=== PATIENT | male | born 1985 | race Caucasian/White ===

== ENCOUNTER 2021-09-23 19:03 | Emergency (ER) | payer OTHER, SELFPAY ==
--- NOTE | ~2021-09-23 | XR_ITS ---
EXAMINATION: XR ankle LT min 3V DATE: 09/23/2021 19:26 INDICATION: Left ankle pain, initial encounter TECHNIQUE: Anteroposterior, lateral, mortise, and additional oblique view of the ankle were obtained. COMPARISON: None. FINDINGS: There is an oblique fracture of the distal fibula 5 cm above the tibial plafond. There is a transverse avulsion fracture of the medial malleolus. There is a posterior malleolus fracture of the distal tibia as well. There is mild lateral subluxation of the talus with respect to the distal tibi a. Soft tissue swelling surrounds the fractures. No additional acute osseous findings are evident. IMPRESSION: 1. Oblique fracture of the distal fibula. 2. Posterior and medial malleolar fractures of the tibia. 3. Mild lateral subluxation of the talus with respect to the tibia. Reviewed, dictated and finalized at location F.
--- NOTE | ~2021-09-23 | CT_ITS ---
EXAMINATION: CT ankle LT wo con DATE: 09/23/2021 21:04 INDICATION: Left ankle pain TECHNIQUE: Computed tomography (CT) of the left ankle was performed without intravenous contrast. The dose-length product (DLP) was 477.66 mGy-cm. Automated exposure control and iterative reconstruction technique were employed. COMPARISON: Radiographs from earlier today FINDINGS: Again seen is an oblique fracture of the distal fibula ending approximately 5.5 cm above th e tibial plafond. A second fracture plane continues an oblique and anterior fashion resulting in a no ndisplaced fracture fragment situated between the oblique fracture and lateral malleolus. There are c omminuted fractures of the medial and posterior malleoli of the tibia. The talus is laterally subluxe d approximately 9 mm with respect to the distal tibia. No additional fracture is identified. Soft tis yinka swelling surrounds the fractures. IMPRESSION: 1. Fractures of the distal tibia and fibula as described above. Reviewed, dictated and finalized at location F.
[2021-09-23 19:08] VITALS: BP 142/89; PULSE 70; RESP 17; TEMP 36.5; O2SAT 100
[2021-09-23] MEDS: ONDANSETRON INJ 4 MG/2 ML VIAL IV PUSH (20:11)
[2021-09-23] MEDS: MORPHINE SULFATE (*CRX) 4 MG/ML INJ IV PUSH (20:11)
--- NOTE | 2021-09-23 22:00 | ED.LOWEXIN ---
HPI - Extremity Injury (Lower) General Chief Complaint: Extremity Injury, Lower Stated Complaint: possible broken ankle Time Seen by Provider: 09/23/21 19:07 Source: patient Mode of arrival: EMS Limitations: no limitations History of Present Illness HPI Narrative: 35-year-old otherwise healthy here with complaints of left ankle pain. Patient states that he got injured few hours ago. Patient states that his son was throwing a ball and he tried to avoid it and jumped and landed in a wrong way. Since then he has been unable to bear weight on his left leg. He denies headache or neck injury. MD complaint: leg injury and ankle injury Onset (ago): hour(s) (2) Type of Injury: unknown Place: street/outdoors Severity: severe Severity scale (1-10): 10 Relieving factors: immobilization and rest Exacerbating factors: movement Context: fall Associated symptoms: snap/pop sensation and swelling Other symptoms: none Related Data Allergies Allergy/AdvReac Type Severity Reaction Status Date / Time Sulfa (Sulfonamide Allergy Unknown Verified 09/23/21 19:18 Antibiotics) Review of Systems Review of Systems: All systems reviewed & are unremarkable except as noted in HPI and below Constitutional: Constitutional: Reports no additional constitutional complaints Eyes: Eyes: Reports no additional eye complaints ENT: Reports system reviewed and no additional complaints, except as documented Cardiovascular: Cardiovascular: Reports no additional cardiovascular complaints Respiratory: Respiratory: Reports no additional respiratory complaints Gastrointestinal: Gastrointestinal: Reports no additional gastrointestinal complaints Musculoskeletal: Musculoskeletal: Reports as per HPI Integumentary/Breasts: Skin/Breast: Reports system reviewed and no additional complaints, except as docu Neurologic: Reports system reviewed and no additional complaints, except as documented Exam Narrative: GENERAL: Well-appearing, well-nourished, and in no acute distress. HEAD: Normocephalic, atraumatic. EYES: PERRLA and EOMI.. NECK: Supple. CHEST: Clear to auscultation. No respiratory distress. HEART: Regular rate and rhythm. No murmur heard. Normal peripheral pulses. ABDOMEN: Soft, nontender, nondistended, normal active bowel sounds. EXTREMITIES: Normal range of motion. Examination of the left ankle moderate soft tissue swelling, no obvious deformity noted SKIN: Warm, dry, no rash. NEURO: No focal deficits. Alert and oriented x3. PSYCH: Normal mood and affect. Course Course Emergency Course: Inform patient and his about x-ray findings. Discussed with Dr. Gómez recommended a CT of the ankle. He reviewed the CT and ankle x-rays. We will see him in the office tomorrow. Advised patient to use crutches for ambulation no weightbearing. Keep the leg elevated. Take pain medication as needed. Vital Signs Vital signs: Vital Signs Temperature 36.5 C 09/23/21 19:08 Pulse Rate 70 09/23/21 19:08 Respiratory Rate 17 09/23/21 19:08 Blood Pressure 142/89 H 09/23/21 19:08 Pulse Oximetry 100 09/23/21 19:08 Temperature 36.5 C 09/23/21 19:08 Pulse Rate 70 09/23/21 19:08 Respiratory Rate 17 09/23/21 19:08 Blood Pressure 142/89 H 09/23/21 19:08 Pulse Oximetry 100 09/23/21 19:08 MDM - Extremity Injury (Lower) Imaging Data Radiologist's impression: ITS Impressions Ankle X-Ray 09/23/21 19:27 IMPRESSION: 1. Oblique fracture of the distal fibula. 2. Posterior and medial malleolar fractures of the tibia. 3. Mild lateral subluxation of the talus with respect to the tibia. Ankle CT 09/23/21 21:12 IMPRESSION: 1. Fractures of the distal tibia and fibula as described above. Discharge Plan Discharge Clinical Impression: Ankle fracture, left Qualifiers: Encounter type: initial encounter Fracture type: closed Qualified Code(s): S82.892A - Other fracture of left lower leg, initial encounter for closed
[2021-09-23 22:30] VITALS: BP 132/71; PULSE 70; RESP 16; O2SAT 98
== END 2021-09-23 22:30 | disposition home or self-care (01) ==
PROVIDERS: Emergency Provider Family Medicine
DX: S82.832A Other fracture of upper and lower end of left fibula, initial encounter for closed fracture (principal); S82.52XA Displaced fracture of medial malleolus of left tibia, initial encounter for closed fracture
CPT/HCPCS: 29505; 73610; 73700; 96374; 96375; 99284; J2270; J2405

== ENCOUNTER 2021-10-01 01:39 | Day surgery (SDC) | payer OTHER, SELFPAY ==
[2021-09-25 14:47] VITALS: BMI 31.2
--- NOTE | 2021-09-25 14:56 | PC.NURSE ---
Report to the Outpatient Waiting Room, entrance under the green pavilion located off [facility], at time 0600 on date . OR Time: 0730. - You and your visitor will be asked a series of questions to screen for COVID 19 for your protection. - Only one visitor is allowed at this time. - The patient visitor is requested to leave or wait in car when not with patient. - A mask is required within the hospital. Patients may have clear liquids (water, carbonated beverages, clear teas, apple juice) until 3 hours prior to surgery with a maximum of 20 ounces. - No food from midnight until time of surgery. Take the following medications with a SIP of water the morning of surgery: Pain medication if needed. Medications to discontinue per physician Date to take last dose Please no make-up, nail gambian, hairspray, perfume, deodorant, or body powder the day of surgery. No jewelry (including any body piercings) or valuables the day of surgery, leave them at home. Please take a shower or bath the night before, or the morning of, surgery with an antibacterial soap. Wear comfortable, loose fitting clothing. - Jewelry must be removed prior to entering the operating room. Rings and piercings that are not removed may be cut off. - The hospital will not accept responsibility for valuables. - Please leave all valuables, including medications, at home the day of surgery. If you are going home after surgery, a licensed straddle truck driver must drive you home. - NO public transportation without another adult. - We recommend that an adult stay with you for 24 hours following discharge. - We also recommend that you do not drive, make important decision, drink alcoholic beverages, or take any drugs that were not prescribed by your health care provider for at least 24 hours after your discharge time. Follow any additional instructions given to you from your surgeon. If you or anyone in your household have experienced Covid symptoms in the past week, please notify your surgeon or the nurse liaison at the phone number below for possible testing. Telephone instructions given to patient and asked if any additional questions and then verbalized understanding. Patient advised to call surgeon office or pre surgery nurse liaison [phone] if any additional questions.
[2021-10-01] VITALS (7 sets, daily range): BP systolic 129–153; BP diastolic 69–99; PULSE 98–106; RESP 14–20; TEMP 36.2–37.1; O2SAT 96–100
--- NOTE | ~2021-10-01 | XR_ITS ---
EXAMINATION: XR surgery orthopedic DATE: 10/01/2021 09:17 INDICATION: ORIF left ankle fracture TECHNIQUE: 3 fluoroscopic images of the left ankle were obtained during procedure performed by Dr. Rosalio vieira. Radiologist was not present for the imaging or procedure. The amount of fluoroscopy time used during this procedure was 2.3 minutes. COMPARISON: 09/16/2021 FINDINGS: Interval reduction and internal fixation of a trimalleolar fracture of the left ankle. The medial mal leolar fracture is fixed with a single cancellous screw. The distal fibular diaphyseal fracture is fi xed with a retrograde intramedullary anh with distal interlocking screw. There are metallic buttons a t both the medial and lateral sides of a pair of lucent tunnels extending across the metaphyseal lexii ons of the distal tibia and fibula for likely tightrope type syndesmotic fixation. The posterior mall eolar fracture fragment remains unfixed. Alignment post fixation appears near-anatomic with a congrue nt ankle mortise. Tibiotalar and subtalar joint spaces are normal. IMPRESSION: 1. Near-anatomic alignment post open reduction and internal fixation of medial malleolar and distal f ibular diaphyseal fractures. The posterior malleolar fracture is not directly fixed. Reviewed, dictated and finalized at location A. IMPRESSION: 1. Near-anatomic alignment post open reduction and internal fixation of medial malleolar and distal fibular diaphyseal fractures. The posterior malleolar frac ture is not directly fixed.
[2021-10-01] MEDS: ACETAMINOPHEN 500 MG TABLET 1000 MG PO (06:40)
--- NOTE | 2021-10-01 06:54 | P.PNAN_ITS ---
Anes - Initial Pre Proc Eval Procedure: Operation Date: 10/01/21 07:30 Proposed Procedures p Open Reduction Internal Fixation Left Ankle Fracture - Forest Zapata MD Date/Time: 10/01/21 06:54 Surgeon: Forest Zapata MD Pre Op Diagnosis: Lt Ankle Trimalleolar Fx Patient Data Age: 36 Gender: M Height: 1.91 m Weight: 113.4 kg Allergies Allergy/AdvReac Type Severity Reaction Status Date / Time Sulfa (Sulfonamide AdvReac Unknown Unknown as Verified 10/01/21 06:36 Antibiotics) child Home Medications Medication Instructions Recorded Confirmed Type diazepam 5 mg tablet 5 mg PO TID PRN #14 tablet 09/30/21 10/01/21 Rx ondansetron 8 mg disintegrating 8 mg PO Q6-8H PRN #10 tablet 09/30/21 10/01/21 Rx tablet oxycodone-acetaminophen 7.5 mg-325 1 tablet PO Q4H PRN #30 tablet 09/30/21 10/01/21 Rx mg tablet sennosides 8.6 mg-docusate sodium 1 tab-cap PO BID #30 tablet 09/30/21 10/01/21 Rx 50 mg tablet Patient hx anesthesia problems: none Family hx anesthesia problems: none Results Review: All pre-operative results and documents have been reviewed as part of the pre-operative evaluation. [facility] Past Medical History Medical History (Updated 09/30/21 @ 12:23 by Forest Zapata MD) Ankle syndesmosis disruption Trimalleolar fracture of left ankle Social History Social History Smoking status: Never smoker Second hand tobacco smoke exposure: No Alcohol intake: never Substance use: never Living arrangements: with family Occupation/Education: occupation Additional occupation/education comments: [employer] Gender identity (if verbalized by the patient): Male Spiritual care concerns: No Anes - Eval Final PreProcedure Day of Procedure 10/01/21 06:54 Patient weight: obese Heart: regular rate and rhythm Lungs: clear to auscultation and normal air movement Airway: Mallampati scale class II Neurological: alert and oriented Last oral intake: >/= 8 hours ASA classification: II Emergent: no Anesthetic plan: proceed Anesthesia type and monitoring: general LMA and standard monitoring Results Review: All pre-operative results and documents have been reviewed as part of the pre-operative evaluation. Informed Consent: The patient's anesthetic plan and its attendant risks and benefits were discussed with the patient/family/POA. Questions were solicited and answers provided to the satisfaction of the patient/family/POA.
[2021-10-01] MEDS: LACTATED RINGERS 1,000 ML 30 ML IV CONT ×2 (07:05→09:45)
--- NOTE | 2021-10-01 07:06 | WPDHPUPDATE1 ---
History and Physical Update Update Date/Time: 10/01/21 07:06 History and Physical has been reviewed, including an updated exam of the patient. There are NO changes in the patient's condition. Risks, benefits, and alternatives have been discussed and questions answered. Patient agrees to proceed with procedure.
[2021-10-01] MEDS: KETOROLAC 15 MG/ML VIAL (*BKC) IV PUSH (07:08)
--- NOTE | 2021-10-01 07:22 | SUR.PREOP ---
0710-SPOKE W/DR. SPARKS REGARDING BOOT REMOVAL/SHAVE-HE REMOVED BOOT, STATES NO SHAVE NEEDED, TOGETHER, PT'S FOOT POSITIONED ON PILLOW.
--- NOTE | 2021-10-01 07:29 | WPDANESPNB ---
Anes - Peripheral Nerve Block Date/Time: 10/01/21 07:29 I have discussed with the patient/family/POA the placement of a peripheral nerve block for post-operative pain management, including associated risks, benefits, complications, and side effects. Alternative methods of post-operative analgesia were detailed. Questions were solicited and answers provided to the satisfaction of the patient/family/POA. Time-Out: A pre-procedural Time-Out was completed immediately before starting the procedure and confirmed: Patient Identification, Site, Procedure, Patient Position and the Availability of Requisite Equipment. Clinical Indications: Acute post-operative pain management requested by the operative surgeon. Nerve Block Insertion Note Anes-nerve block: posterior fossa sciatic left and adductor canal left Patient position: supine (for adductor canal) and other (right lateral for popliteal) Skin prep: chlorhexidine Needle: 22 gauge, stimulating, insulated echogenic needle. Needle length: 80 mm Technique: nerve stimulation lost at (mA) (for popliteal lost at 0.2) and ultrasound Injectate: bupivacaine 0.5% with epi 5 mcg/ml (20 mL for popliteal, 10 mL for adductor canal (no epi)) Observations: tolerated well Complications: none Procedure start time:: 721 Procedure end time:: 726
[2021-10-01] MEDS: ceFAZolin 2 GM/D5W 50 ML 2 GM/50 ML BAG IVPB (07:34)
--- NOTE | 2021-10-01 09:59 | W.PM.PROC2 ---
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 Ankle fracture dislocation in the emergency room treated with reduction. Now presents for operative treatment. Description of Procedure Patient identified in the preoperative holding. Informed consent given. Operative extremity marked. Patient received intravenous antibiotics. Patient brought to the operating room where underwent general anesthetic by anesthesia team. Positioned supine on operating room table. Time-out performed confirming the patient, site of the surgery and the plan. Lower extremity prepped and draped in the usual sterile surgical fashion using ChloraPrep skin solution. Foot and ankle exsanguinated and thigh tourniquet inflated to 250 mmHg. Fluoroscopy used and closed reduction the fracture performed. Fluoroscopic guidance to start entry point distal to the fibula with a 15 blade knife. Blunt dissection of the tip of the fibula guide pin placed through the distal fibula across the fracture into the proximal fibula. Confirmed with image intensification. Distal reaming with a 6.3 mm Reamer performed distal to the fracture. More proximal reaming with the 3.3 mm Reamer. Nail assembled on the back table. Guide anh removed and the nail inserted to the correct depth. Proximal locking Lanre deployed and verified with image intensification. Distal locking of the nail performed with stab incisions and blunt dissection down to the bone and 2.7 mm locking screws. Longitudinal incision made over the medial malleolar fracture with a 15 blade knife. Hemostasis controlled electrocautery. Periosteum incised in line with skin incision. Medial malleolus fracture reduced after irrigation and fixation achieved with a 2.7 mm screw. Image intensification confirmed reduction the fractures and placement of the hardware. Instability of the syndesmosis noted fluoroscopic exam and syndesmosis repair indicated. Fibula was reduced in the incisura and verified with image intensification. Drill placed from the lateral fibula through the nail into the tibia. Tight rope assembly device then passed through the hole and deployed on the medial tibia. With the ankle in a neutral position the lateral washer then tightened. Second tight rope syndesmosis fixation performed in similar fashion with drilling through the fibula, nail and tibia. Insertion of the device and deployment medially followed by tightening washer. Image intensification confirmed final alignment and placement of the hardware. Wounds thoroughly irrigated with antibiotic solution. Wounds closed with 3-0 Monocryl interrupted suture. Sterile dressing applied. The patient was then woken from anesthesia, extubated and taken to the recovery room in stable condition. All sponge, needle, instrument counts were correct at the end of the case. Implants Arthrex fibular intramedullary nail with 2.7 mm locking screw. 2.7 mm screw for medial malleolus. Syndesmosis tight rope fixation x2 Estimated Blood Loss 20 Tourniquet Time 103 Drains No Packing No Pathology None sent Complications None Condition Stable Disposition PACU
== END 2021-10-01 11:46 | disposition home or self-care (01) ==
PROVIDERS: Visit Provider Orthopaedic Surgery
PROC: (CPT 27822; principal; 2021-10-01 07:30)
DX: S82.852A Displaced trimalleolar fracture of left lower leg, initial encounter for closed fracture (principal); S93.432A Sprain of tibiofibular ligament of left ankle, initial encounter; T14.90XA Injury, unspecified, initial encounter
CPT/HCPCS: 27822; 27829; A9270; C1713; C1769; J0690; J1100; J1885; J2250; J2405; J2704; J7120